=== PATIENT | male | born 1950 | race Caucasian/White ===

== ENCOUNTER → 2018-02-01 | Outpatient (CLI) | payer MEDICARE ==
[2018-02-01 12:29] LABS: HCT 43.4 % (39.0-53.0); HGB 14.2 gm/dL (13.0-17.5); MCH 30.3 pg (25.0-35.0); MCHC 32.7 g/dL (31.0-37.0); MCV 92.6 fL (80.0-100.0); Mean Platelet Volume 7.1; Platelet Count 246 k/uL (150-450); RBC 4.69 m/uL (4.30-5.90); WBC 8.6 k/uL (3.8-10.6)
[2018-02-01 12:42] LABS: Partial Thromboplastin Time 22.1 sec (22.0-30.0); Prothrombin Time 9.9 sec (9.0-12.0)
[2018-02-01 12:53] LABS: Albumin 3.8 g/dL (3.5-5.0); Calcium 9.5 mg/dL (8.4-10.2); Magnesium 1.8 mg/dL (1.6-2.3); Phosphorus 4.3 mg/dL (2.5-4.5); Total Bilirubin 0.4 mg/dL (0.2-1.3); Total Protein 6.4 g/dL (6.3-8.2)
[2018-02-01 13:32] LABS: Potassium 6.3 mmol/L (3.5-5.1)
[2018-02-01 18:54] LABS: Iron Saturation 31.07 (15.00-50.00)
[2018-02-01 19:05] LABS: Folate, Serum >24.0 ng/mL; Vitamin D 25 Hydroxy 44.3 ng/mL (30.0-100.0)
[2018-02-01 19:47] LABS: Parathyroid Hormone Intact 65.1 pg/mL (14.0-72.0)
[2018-02-01 21:27] LABS: Hemoglobin A1C 7.5 % (4.0-6.0)
[2018-02-02 14:39] LABS: Zinc, Serum 89 ug/dL (60-130)
[2018-02-03 05:58] LABS: Vitamin A 69 ug/dL (38-106)
[2018-02-03 13:04] LABS: Vitamin B1 77 ug/L (38-122)
== END | disposition home or self-care (01) ==
LOC: LABWHC1 11:45
PROVIDERS: ATTEND Surgery Plastic and Reconstructive Surgery
DX: E21.1 Secondary hyperparathyroidism, not elsewhere classified (principal); D50.9 Iron deficiency anemia, unspecified; K91.2 Postsurgical malabsorption, not elsewhere classified; E44.0 Moderate protein-calorie malnutrition; E55.9 Vitamin D deficiency, unspecified; K74.1 Hepatic sclerosis; N19 Unspecified kidney failure; K50.90 Crohn's disease, unspecified, without complications; E89.1 Postprocedural hypoinsulinemia
CPT/HCPCS: 36415; 80053; 80061; 82306; 82525; 82607; 82728; 82746; 83036; 83540; 83550; 83735; 83970; 84100; 84134; 84255; 84425; 84443; 84590; 84630; 85027; 85610; 85730

== ENCOUNTER → 2018-02-17 | Outpatient (CLI) | payer MEDICARE ==
[2018-02-17 13:40] VITALS: BP 146/81; PULSE 79; RESP 16; TEMP 98.2; BMI 42.4
--- NOTE | 2018-02-17 13:53 | P.PN ---
Subjective Progress Note Date: 02/17/18 HPI: He reports mild increase in his weight. He is going to the gym. He has a personal care aid. He is off his CPAP. He reports eating more food. He cannot eat beef, pork chop or steak. He has cravings for the sweets. He is back on metformin. He is still on insulin. He is down to 7.6 Hgb A1C. He reports new GERD at night. He takes TUMS with relief. ABDOMEN: Has umbilical hernia 4-cm. No incisional hernias. PLAN: 1. Medications are essentially unchanged. 2. He is moving to [place]. 3. He is due for labs. 4. Gallbladder symptoms were described. 5. May need upper endoscopy for evaluation of dysphagia. 6. Recommend 2 week protein diet to get back on track. 7. Labs reviewed. 8. Umbilical robotic hernia advised. Objective - Vital Signs Vital signs: Vital Signs Temp 98.2 F 02/17/18 13:37 Pulse 79 02/17/18 13:37 Resp 16 02/17/18 13:37 BP 146/81 02/17/18 13:37 Pulse Ox Intake & Output 02/16/18 02/17/18 02/17/18 18:59 06:59 18:59 Weight 137.977 kg
== END | disposition home or self-care (01) ==
LOC: BARWHC3 13:32
PROVIDERS: ATTEND Surgery Plastic and Reconstructive Surgery
DX: K21.9 Gastro-esophageal reflux disease without esophagitis (principal); K42.9 Umbilical hernia without obstruction or gangrene; Z79.84 Long term (current) use of oral hypoglycemic drugs; Z79.82 Long term (current) use of aspirin; Z79.899 Other long term (current) drug therapy
CPT/HCPCS: 99211